=== PATIENT | female | born 1990 | race Hispanic/Latino ===

== ENCOUNTER 2019-07-10 19:54 | Emergency (ER) | payer OTHER, SELFPAY | END 2019-07-10 23:07 | disposition home or self-care (01) | LOC: ERS 19:54 | DX: B34.9 Viral infection, unspecified (principal); I10 Essential (primary) hypertension; F32.9 Major depressive disorder, single episode, unspecified | CPT/HCPCS: 87081; 87430; 99284 ==

== ENCOUNTER 2019-11-04 16:23 | Emergency (ER) | payer SELFPAY | END 2019-11-04 17:38 | disposition home or self-care (01) | LOC: ERS 16:23 | DX: I10 Essential (primary) hypertension (principal); F32.9 Major depressive disorder, single episode, unspecified; J06.9 Acute upper respiratory infection, unspecified | CPT/HCPCS: 99283 ==

== ENCOUNTER 2021-02-01 17:15 | Emergency (ER) | payer SELFPAY ==
[2021-02-01] MEDS ORDERED: Acetaminophen 500 MG TAB ONE ×2 (17:27→17:59)
[2021-02-01] MEDS ORDERED: Ibuprofen 800 MG TAB ONE (17:27)
[2021-02-01] MEDS ORDERED: Dexamethasone 10 MG/ML VIAL ONE (17:29)
[2021-02-01] MEDS ORDERED: Ketorolac Tromethamine 30 MG/ML VIAL ONE (17:29)
[2021-02-01 17:59] LABS: #Lymphocytes 1.5 thou/uL (1.20-3.40); #Monocytes 0.2 thou/uL (0.11-0.59); #Neutrophils 3.7 thou/uL (1.40-6.50); %Basophils 0.5 % (0.0-1.0); %Eosinophils 0.1 % (0.0-10.0); %Lymphocytes 27.9 % (21.0-51.0); %Monocytes 3.7 % (0.0-10.0); %Neutrophils 67.9 % (42.0-75.0); Mean Corpuscular HGB CONC 34.1 g/dL (32.0-36.0); Mean Corpuscular Volume 85.2 fL (78.0-98.0); Mean Platelet Volume 7.8 fL (7.4-10.4); Platelet Count 202 thou/uL (130-400); RBC Distribution Width 13.6 % (11.5-14.5); Red Blood Cell (RBC) Count 4.81 mill/uL (4.20-5.40); White Blood Cell (WBC) Count 5.5 thou/uL (4.8-10.8)
[2021-02-01 18:06] LABS: BHCG - Serum Negative (NEGATIVE); Pregs Control Background? CLEAR/WHITE (CLR/WHITE); Pregs Control Bar Appear? YES (CONTROL BAR)
[2021-02-01 18:21] LABS: ALT (SGPT) 49 U/L (8-55); AST (SGOT) 70 U/L (5-34); Albumin 3.7 g/dL (3.5-5.0); Alkaline Phosphatase 85 U/L (40-110); Anion Gap 12 mmol/L (10-20); BUN (Urea Nitrogen) 10 mg/dL (7.0-18.7); Bilirubin, Total 0.3 mg/dL (0.2-1.2); Calc. Creatinine Clearance 0 mL/min (70-130); Carbon Dioxide 24 mmol/L (22-29); Chloride 106 mmol/L (98-107); Globulin 3.7 g/dL (2.4-3.5); Glucose 103 mg/dL (70-105); Potassium 3.7 mmol/L (3.5-5.1); Protein, Total 7.4 g/dL (6.0-8.3); Sodium 138 mmol/L (136-145)
[2021-02-01 19:47] LABS: Bacteria/HPF 4+ HPF (None Seen); Bilirubin Negative (Negative); Blood, Urine 3+ (Negative); Clarity Extra Turbid (Clear); Glucose, Urine (Dipstick) 30 mg/dL (Negative); Ketone, Urine Negative (Negative); Leukocyte 250 Leu/uL (Negative); Mucous/LPF Rare LPF (<2+); Nitrite Negative (Negative); Protein, Urine (Dipstick) 300 mg/dL (Neg-Trace); RBC/HPF 21-50 HPF (0-3); Specific Gravity, Urine 1.039 (1.002-1.036); Squamous Epithelial 21-50 HPF (0-3); Urobilinogen 3 mg/dL (Less than 2); WBC/HPF 21-50 HPF (0-3)
== END 2021-02-01 21:02 | disposition home or self-care (01) ==
LOC: ERS 17:15
DX: U07.1 COVID-19 (principal); N39.0 Urinary tract infection, site not specified; I10 Essential (primary) hypertension
CPT/HCPCS: 71045; 80053; 81003; 81015; 84703; 85025; 93005; 96374; 96375; J1100; J1885

== ENCOUNTER 2021-02-04 19:07 | Inpatient (IN) | payer SELFPAY ==
[~2021-02-04 19:07] MED LIST: Iopamidol-370 76% 500 ML 1 ML ONE
[2021-02-04] MEDS ORDERED: Acetaminophen 500 MG TAB ONE (19:43)
[2021-02-04] MEDS ORDERED: Albuterol 200 PUFF (6.7GM INHALER) ONE (19:49)
[2021-02-04 19:56] LABS: Hemoglobin 13.4 g/dL (12.0-16.0); Mean Corpuscular Volume 85.4 fL (78.0-98.0); Mean Platelet Volume 7.6 fL (7.4-10.4); Platelet Count 269 thou/uL (130-400); RBC Distribution Width 13.8 % (11.5-14.5); Red Blood Cell (RBC) Count 4.61 mill/uL (4.20-5.40)
[2021-02-04 19:58] LABS: BHCG - Serum Negative (NEGATIVE); Pregs Control Background? CLEAR/WHITE (CLR/WHITE); Pregs Control Bar Appear? YES (CONTROL BAR)
[2021-02-04 20:04] LABS: ALT (SGPT) 49 U/L (8-55); AST (SGOT) 65 U/L (5-34); Albumin 3.5 g/dL (3.5-5.0); Alkaline Phosphatase 74 U/L (40-110); Anion Gap 14 mmol/L (10-20); BUN (Urea Nitrogen) 11 mg/dL (7.0-18.7); Bilirubin, Total 0.3 mg/dL (0.2-1.2); Calc. Creatinine Clearance 0 mL/min (70-130); Calcium 7.9 mg/dL (7.8-10.44); Carbon Dioxide 22 mmol/L (22-29); Chloride 106 mmol/L (98-107); Glucose 122 mg/dL (70-105); Potassium 3.6 mmol/L (3.5-5.1); Protein, Total 7.5 g/dL (6.0-8.3); Sodium 138 mmol/L (136-145)
[2021-02-04 20:12] LABS: Band 30 % (5-11); Lymphocytes 8 % (21-51); MDiff Complete? YES; Monocytes 2 % (0-10); Neutrophil 60 % (42-75)
[2021-02-04] MEDS ORDERED: Dexamethasone 10 MG/ML VIAL ONE (21:16)
[2021-02-04] MEDS ORDERED: Acetaminophen 325 MG TAB PO PRN (22:49)
[2021-02-04] MEDS ORDERED: Ondansetron PF 4 MG/2 ML Vial IVP PRN (22:49)
[2021-02-04] MEDS ORDERED: HYDROcodone/Acetaminophen 7.5/325 mg Tablet PO PRN (22:49)
[2021-02-04] MEDS ORDERED: hydrALAZINE 20 MG/ML VIAL SLOW IVP PRN (22:52)
[2021-02-04] MEDS ORDERED: Ivermectin 3 MG TAB PO SCH (23:00)
[2021-02-04] MEDS ORDERED: HumaLOG 300 UNITS/3 ML VIAL SC PRN (23:19)
[2021-02-04] MEDS ORDERED: Dexamethasone 10 MG in Sodium Chloride 0.9% 50 ML IVPB SCH (23:45)
[2021-02-05 00:45] VITALS: BMI 44.1
[2021-02-05] MEDS ORDERED: Albuterol 200 PUFF (6.7GM INHALER) INH PRN (04:03)
[2021-02-05 04:44] LABS: #Lymphocytes 0.6 thou/uL (1.20-3.40); #Monocytes 0.1 thou/uL (0.11-0.59); #Neutrophils 3.4 thou/uL (1.40-6.50); %Basophils 0.4 % (0.0-1.0); %Eosinophils 0.1 % (0.0-10.0); %Lymphocytes 14.8 % (21.0-51.0); %Monocytes 1.8 % (0.0-10.0); %Neutrophils 82.9 % (42.0-75.0); Hemoglobin 12.1 g/dL (12.0-16.0); Mean Corpuscular HGB CONC 31.5 g/dL (32.0-36.0); Mean Corpuscular Hemoglobin 27.1 pg (27.0-31.0); Mean Platelet Volume 7.6 fL (7.4-10.4); Platelet Count 282 thou/uL (130-400); RBC Distribution Width 13.8 % (11.5-14.5); Red Blood Cell (RBC) Count 4.45 mill/uL (4.20-5.40); White Blood Cell (WBC) Count 4.1 thou/uL (4.8-10.8)
[2021-02-05 05:09] LABS: Anion Gap 13 mmol/L (10-20); BUN (Urea Nitrogen) 12 mg/dL (7.0-18.7); Calc. Creatinine Clearance 186 mL/min (70-130); Calcium 7.7 mg/dL (7.8-10.44); Carbon Dioxide 22 mmol/L (22-29); Chloride 107 mmol/L (98-107); Glucose 168 mg/dL (70-105); Potassium 3.9 mmol/L (3.5-5.1); Sodium 138 mmol/L (136-145)
[2021-02-05] MEDS: Albuterol 200 PUFF (6.7GM INHALER) INH SCH ×5 (06:01→21:14)
[2021-02-05] MEDS ORDERED: Dexamethasone 4 MG TAB PO SCH (08:00)
[2021-02-05] MEDS: Famotidine 20 MG TAB PO SCH ×2 (09:07→21:12)
[2021-02-05] MEDS: Enoxaparin Sodium 40 MG/0.4 ML SYRINGE SC SCH (09:07)
[2021-02-05] MEDS: Dexamethasone 4 mg/ml Vial SLOW IVP SCH (09:07)
[2021-02-05] MEDS: Zinc Sulfate 220 MG CAP PO SCH (09:08)
[2021-02-05] MEDS: guaiFENesin ER 600 MG TAB PO SCH ×2 (09:08→21:12)
[2021-02-05] MEDS: Ivermectin 3 MG TAB PO SCH (11:35)
[2021-02-05] MEDS ORDERED: Cefepime 1 GM in Sodium Chloride 0.9% 100 ML IVPB SCH (12:00)
[2021-02-05] MEDS: Ascorbic Acid 500 mg Chewable Tablet PO SCH (21:12)
[2021-02-05] MEDS: Cholecalciferol 1,000 UNITS (25 MCG) TAB PO SCH (21:12)
[2021-02-05] MEDS: Azithromycin 500 MG in Sodium Chloride 0.9% 250 ML 250 ML IVPB SCH (21:13)
[2021-02-06] MEDS: Albuterol 200 PUFF (6.7GM INHALER) INH SCH ×6 (02:08→22:06)
[2021-02-06] MEDS: Zolpidem Tartrate 5 MG TAB PO PRN (02:15)
[2021-02-06] MEDS: Famotidine 20 MG TAB PO SCH ×2 (09:24→20:54)
[2021-02-06] MEDS: Ascorbic Acid 500 mg Chewable Tablet PO SCH ×2 (09:24→20:45)
[2021-02-06] MEDS: guaiFENesin ER 600 MG TAB PO SCH ×2 (09:24→20:45)
[2021-02-06] MEDS: Zinc Sulfate 220 MG CAP PO SCH (09:25)
[2021-02-06] MEDS: Enoxaparin Sodium 40 MG/0.4 ML SYRINGE SC SCH (09:26)
[2021-02-06] MEDS: Dexamethasone 4 mg/ml Vial SLOW IVP SCH (09:26)
[2021-02-06] MEDS: Ivermectin 3 MG TAB PO SCH (12:15)
[2021-02-06] MEDS: Cholecalciferol 1,000 UNITS (25 MCG) TAB PO SCH (20:44)
[2021-02-06] MEDS: Azithromycin 500 MG in Sodium Chloride 0.9% 250 ML 250 ML IVPB SCH (20:46)
[2021-02-07] MEDS: Zolpidem Tartrate 5 MG TAB PO PRN ×2 (00:37→20:51)
[2021-02-07] MEDS: Albuterol 200 PUFF (6.7GM INHALER) INH SCH ×6 (02:21→21:46)
[2021-02-07] MEDS: guaiFENesin ER 600 MG TAB PO SCH ×2 (09:21→20:51)
[2021-02-07] MEDS: Ascorbic Acid 500 mg Chewable Tablet PO SCH ×2 (09:21→20:51)
[2021-02-07] MEDS: Dexamethasone 4 mg/ml Vial SLOW IVP SCH (09:21)
[2021-02-07] MEDS: Zinc Sulfate 220 MG CAP PO SCH (09:21)
[2021-02-07] MEDS: Famotidine 20 MG TAB PO SCH ×2 (09:21→20:50)
[2021-02-07] MEDS: Enoxaparin Sodium 40 MG/0.4 ML SYRINGE SC SCH (09:22)
[2021-02-07] MEDS: Ivermectin 3 MG TAB PO SCH (12:03)
[2021-02-07] MEDS: Cholecalciferol 1,000 UNITS (25 MCG) TAB PO SCH (20:50)
[2021-02-07] MEDS: Azithromycin 500 MG in Sodium Chloride 0.9% 250 ML 250 ML IVPB SCH (20:51)
[2021-02-08] MEDS: Albuterol 200 PUFF (6.7GM INHALER) INH SCH ×4 (03:01→14:58)
[2021-02-08] MEDS: Dexamethasone 4 mg/ml Vial SLOW IVP SCH (08:15)
[2021-02-08] MEDS: Zinc Sulfate 220 MG CAP PO SCH (08:17)
[2021-02-08] MEDS: Ascorbic Acid 500 mg Chewable Tablet PO SCH (08:17)
[2021-02-08] MEDS: guaiFENesin ER 600 MG TAB PO SCH (08:18)
[2021-02-08] MEDS: Enoxaparin Sodium 40 MG/0.4 ML SYRINGE SC SCH (08:18)
[2021-02-08 08:25] VITALS: TEMP 98.1
[2021-02-08] MEDS ORDERED: Non-Formulary Item 1 EACH (Albuterol Sulfate [Albuterol Sulfate Hfa] 8.5 GM Hfa.Aer.Ad) IH PRN (10:02)
[2021-02-08] MEDS ORDERED: Benzonatate 100 MG CAP PO PRN (10:02)
[2021-02-08] MEDS ORDERED: Albuterol 200 PUFF (6.7GM INHALER) INH PRN (10:06)
[2021-02-08] MEDS ORDERED: Loperamide HCl 2 MG CAP PO PRN (10:15)
[2021-02-08] MEDS: Famotidine 20 MG TAB PO SCH (10:15)
[2021-02-08] MEDS: Ivermectin 3 MG TAB PO SCH (11:57)
[2021-02-08 18:18] VITALS: BP 112/70
== END 2021-02-08 17:13 | disposition home or self-care (01) | DRG 177 ==
LOC: ERS 19:07 → 2SW 22:22 → T4-A 02-05 12:00
PROVIDERS: ADMIT Internal Medicine; ATTEND Internal Medicine
PROC: 8E0ZXY6 Isolation (ICD-10-PCS; principal; 2021-02-04)
DX: U07.1 COVID-19 (principal); J12.82 Pneumonia due to coronavirus disease 2019; J96.01 Acute respiratory failure with hypoxia; Z68.41 Body mass index [BMI] 40.0-44.9, adult; I10 Essential (primary) hypertension; F32.9 Major depressive disorder, single episode, unspecified; Z98.51 Tubal ligation status; E66.9 Obesity, unspecified
CPT/HCPCS: 36415; 36416; 71045; 71275; 80048; 80053; 83605; 84703; 85025; 85379; 86140; 87040; 96374; J0456; J1100; J1650; J2405; J7050; Q9967

== ENCOUNTER 2021-04-08 19:38 | Emergency (ER) | payer OTHER, SELFPAY | END 2021-04-08 20:22 | disposition home or self-care (01) | LOC: ERS 19:38 | DX: L65.9 Nonscarring hair loss, unspecified (principal); I10 Essential (primary) hypertension | CPT/HCPCS: 99283 ==

== ENCOUNTER 2022-08-02 18:47 | Emergency (ER) | payer SELFPAY | END 2022-08-02 19:17 | disposition home or self-care (01) | LOC: ERS 18:47 | DX: J11.1 Influenza due to unidentified influenza virus with other respiratory manifestations (principal) | CPT/HCPCS: 87804; 99283 ==

== ENCOUNTER 2022-09-15 16:55 | Emergency (ER) | payer BC, SELFPAY ==
[2022-09-15] MEDS ORDERED: Ketorolac Tromethamine 30 MG/ML VIAL ONE (17:40)
[2022-09-15] MEDS ORDERED: Acetaminophen 500 MG TAB ONE (17:40)
== END 2022-09-15 18:15 | disposition home or self-care (01) ==
LOC: ERS 16:55
DX: S39.012A Strain of muscle, fascia and tendon of lower back, initial encounter (principal); X50.0XXA Overexertion from strenuous movement or load, initial encounter
CPT/HCPCS: 96372; 99283; J1885